=== PATIENT | male | born 1995 | race Caucasian/White ===

== ENCOUNTER 2020-12-17 20:15 | Emergency (ER) | payer OTHER ==
[2020-12-17 21:28] LABS: BASOPHIL 0.3 % (0-2); EOSINOPHIL 0.3 % (0-5); HCT 40.4 % (42.0-52.0); HGB 13.9 g/dl (13.2-18.0); MCHC 34.4 g/dL (32.0-36.0); MCV 87.3 fL (78.0-100.0); MONOCYTE 9.3 % (0-12); NEUTROPHIL 63.8 % (41-80); NRBC 0; PLT 275 K/uL (150-400); RBC 4.63 M/uL (4.70-6.00); RDW 11.9 % (11.5-14.0); WBC 7.5 K/uL (4.0-10.5)
[2020-12-17 21:47] LABS: CREATININE 1.01 mg/dL (0.67-1.17); POTASSIUM 3.2 mmol/L (3.5-5.1)
[2020-12-17 22:07] LABS: BILIRUBIN NEGATIVE (NEGATIVE); BLOOD NEGATIVE Ery/uL (NEGATIVE); CLARITY CLEAR (CLEAR); COLOR YELLOW (YELLOW); GLUCOSE (U) NORMAL (NORMAL); LEUKOCYTES NEGATIVE Leu/uL (NEGATIVE); NITRITE NEGATIVE (NEGATIVE); PROTEIN NEGATIVE (NEGATIVE); pH 7.5 (5.0-9.0)
[2020-12-17] MEDS ORDERED: PREDNISONE 20MG20 MG PO (22:10)
[2020-12-17] MEDS ORDERED: TESSALON PERLE100 M1 PO (22:10)
[2020-12-17 22:11] LABS: AMPHETAMINES NEGATIVE (NEGATIVE); BARBITURATES NEGATIVE (NEGATIVE); ECSTASY (MDMA) NEGATIVE (NEGATIVE); MARIJUANA (THC) NEGATIVE (NEGATIVE); METHADONE NEGATIVE (NEGATIVE); OPIATES NEGATIVE (NEGATIVE); OXYCODONE NEGATIVE (NEGATIVE)
== END 2020-12-17 22:30 | disposition home or self-care (01) ==
LOC: FER 20:15
PROVIDERS: Nurse Practitioner Family
DX: J45.901 Unspecified asthma with (acute) exacerbation (principal); F17.210 Nicotine dependence, cigarettes, uncomplicated
CPT/HCPCS: 36415; 71046; 80048; 80305; 81003; 85025; J2930; J7030